=== PATIENT | female | born 1965 | race Caucasian/White ===

== ENCOUNTER → 2020-03-01 | Outpatient (CLI) | payer OTHER ==
[~2020-03-01] MED LIST: CYMBALTA30 MG PO; DULOXETINE HCL30 MG PO; GLUCOPHAGE XR500 M1 PO; IBUPROFEN200 MG PO; IRON18 MG PO; LIPITOR20 MG PO; LISINOPRIL10 MG PO; LISINOPRIL40 MG PO; MEDROXYPROGESTE10 MG PO; MOBIC15 MG PO; NAPROXEN500 MG PO; ROXICODONE5 MG PO; VIT D PO; VITAMIN D325 MCG PO
[2020-03-01 08:53] LABS: HEMOGLOBIN 10.1 gm/dl (12.3-15.3); RED BLOOD COUNT 3.84 M/UL (4.00-5.10)
[2020-03-01 09:10] LABS: BUN/CREATININE RATIO 18 (0-10)
== END ==
LOC: OPSV2 02-28 10:00
PROVIDERS: Obstetrics & Gynecology
DX: Z01.812 Encounter for preprocedural laboratory examination (principal); N93.9 Abnormal uterine and vaginal bleeding, unspecified; R94.31 Abnormal electrocardiogram [ECG] [EKG]
CPT/HCPCS: 36415; 80048; 81001; 85025; 93005

== ENCOUNTER → 2020-03-05 | Day surgery (SDC) | payer OTHER ==
[~2020-03-05] VITALS: Ht 157.5 cm; Wt 103.0 kg
== END | disposition home or self-care (01) ==
LOC: OR 07:26
PROVIDERS: Obstetrics & Gynecology
PROC: 0U5B8ZZ Destruction of Endometrium, Via Natural or Artificial Opening Endoscopic (ICD-10-PCS; principal; 2020-03-05 09:30)
DX: N84.0 Polyp of corpus uteri (principal); N93.9 Abnormal uterine and vaginal bleeding, unspecified; N73.6 Female pelvic peritoneal adhesions (postinfective); R93.89 Abnormal findings on diagnostic imaging of other specified body structures; I25.2 Old myocardial infarction; I10 Essential (primary) hypertension; K21.9 Gastro-esophageal reflux disease without esophagitis; M35.00 Sjogren syndrome, unspecified; F41.8 Other specified anxiety disorders; F41.0 Panic disorder [episodic paroxysmal anxiety]; E11.9 Type 2 diabetes mellitus without complications; E04.2 Nontoxic multinodular goiter; Z79.84 Long term (current) use of oral hypoglycemic drugs; Z79.899 Other long term (current) drug therapy; Z20.822 Contact with and (suspected) exposure to COVID-19
CPT/HCPCS: 82962; J1100; J1885; J2001; J2250; J2405; J2704; J2795; J3010; J7030; J7120

== ENCOUNTER → 2020-03-20 | Outpatient (CLI) | payer OTHER | LOC: HEART 5 09:39 | DX: R07.9 Chest pain, unspecified (principal); R94.31 Abnormal electrocardiogram [ECG] [EKG]; R93.1 Abnormal findings on diagnostic imaging of heart and coronary circulation | CPT/HCPCS: 93306 ==

== ENCOUNTER → 2020-04-29 | Outpatient (CLI) | payer OTHER ==
[2020-04-29 17:30] LABS: HEMOGLOBIN 12.3 gm/dl (12.3-15.3); RED BLOOD COUNT 4.69 M/UL (4.00-5.10); WHITE BLOOD COUNT 10.1 K/UL (4.5-11.0)
[2020-04-29 17:47] LABS: BUN/CREATININE RATIO 19 (0-10)
== END ==
LOC: LAB 16:10
PROVIDERS: Internal Medicine Interventional Cardiology
DX: E11.9 Type 2 diabetes mellitus without complications (principal); E78.00 Pure hypercholesterolemia, unspecified; R94.31 Abnormal electrocardiogram [ECG] [EKG]; I11.9 Hypertensive heart disease without heart failure
CPT/HCPCS: 80048; 85025; 85610; 85730; 93005

== ENCOUNTER → 2020-05-14 | Outpatient (CLI) | payer OTHER ==
[2020-05-14 07:57] LABS: HEMOGLOBIN 11.7 gm/dl (12.3-15.3); RED BLOOD COUNT 4.58 M/UL (4.00-5.10); WHITE BLOOD COUNT 9.5 K/UL (4.5-11.0)
[2020-05-14 08:56] LABS: BUN/CREATININE RATIO 22 (0-10)
== END ==
LOC: CATH 05-02 08:00
PROVIDERS: Internal Medicine Interventional Cardiology
DX: R07.9 Chest pain, unspecified (principal); I20.8 Other forms of angina pectoris; I10 Essential (primary) hypertension; E78.00 Pure hypercholesterolemia, unspecified; E11.9 Type 2 diabetes mellitus without complications; Z79.84 Long term (current) use of oral hypoglycemic drugs; Z79.899 Other long term (current) drug therapy; Z82.49 Family history of ischemic heart disease and other diseases of the circulatory system
CPT/HCPCS: 36415; 80048; 85027; 85610; 85730; 93005; 99152; J1644; J2250; J3010; J7030; Q9967

== ENCOUNTER → 2020-12-05 | Outpatient (CLI) | payer OTHER | LOC: RAD 14:40 | DX: M54.50 Low back pain, unspecified (principal); M47.816 Spondylosis without myelopathy or radiculopathy, lumbar region | CPT/HCPCS: 72100 ==

== ENCOUNTER → 2021-04-10 | Outpatient (CLI) | payer OTHER ==
[~2021-04-10] VITALS: Ht 157.5 cm; Wt 102.1 kg
== END ==
LOC: EROP 13:39
DX: U07.1 COVID-19 (principal); Z23 Encounter for immunization; E11.9 Type 2 diabetes mellitus without complications; I10 Essential (primary) hypertension; M35.00 Sjogren syndrome, unspecified
CPT/HCPCS: M0247; Q0247

== ENCOUNTER → 2021-04-18 | Outpatient (CLI) | payer OTHER | LOC: KOH-I 10:56 | DX: B97.21 SARS-associated coronavirus as the cause of diseases classified elsewhere (principal) | CPT/HCPCS: 71046 ==

== ENCOUNTER → 2021-05-20 | Outpatient (CLI) | payer OTHER ==
[~2021-05-20] MED LIST changes: +AMOXICILLIN500 M1 PO; +TORADOL 10 MG T10 MG PO
== END ==
LOC: KOH-I 14:08
DX: E04.2 Nontoxic multinodular goiter (principal)
CPT/HCPCS: 76536

== ENCOUNTER 2021-05-24 22:24 | Emergency (ER) | payer OTHER ==
[~2021-05-24 22:24] MED LIST changes: -AMOXICILLIN500 M1 PO; -TORADOL 10 MG T10 MG PO
[2021-05-25] MEDS ORDERED: AMOXICILLIN500 M1 PO (00:10)
[2021-05-25] MEDS ORDERED: TORADOL 10 MG T10 MG PO (00:10)
== END 2021-05-25 00:23 | disposition home or self-care (01) ==
LOC: ER1 22:24
DX: H66.91 Otitis media, unspecified, right ear (principal); R68.84 Jaw pain; E11.9 Type 2 diabetes mellitus without complications; I10 Essential (primary) hypertension
CPT/HCPCS: 96372; 99283; J1885